=== PATIENT | male | born 1970 | race Caucasian/White ===

== ENCOUNTER 2020-09-23 23:12 | Emergency (ER) | payer SELFPAY ==
[~2020-09-23] VITALS: Ht 190.5 cm; Wt 100.0 kg
[2020-09-23 23:13] VITALS: BP 132/89
[2020-09-23] MEDS ORDERED: ACETAMINOPHEN 500 MG TABLET PO ONE (23:30)
[2020-09-23] MEDS ORDERED: PLEASE ENTER ALLERGIES MC SCH (23:45)
--- NOTE | 2020-09-24 00:11 | NUR ---
PT REFUSED TYLENOL AT THIS TIME "I'M KIND OF HAVING AN EPIPHANY BUT THANKS THOUGH"
[2020-09-24] MEDS ORDERED: CEPHALEXIN 500 MG CAPSULE PO ONE (01:00)
[2020-09-24] MEDS ORDERED: SULFAMETH./TRIMETHOPRIM DS 800MG/160MG TABLET PO ONE (01:00)
[2020-09-24] MEDS ORDERED: CEPHALEXIN 500 MG CAPSULE ONE (01:02)
[2020-09-24] MEDS ORDERED: SULFAMETH./TRIMETHOPRIM DS 800MG/160MG TABLET ONE (01:02)
--- NOTE | 2020-09-24 01:29 | NUR ---
PT ESCORTED OUT WITH SECURITY, THREW DC PAPERS AT SECURITY REFUSED PO ABX AND SWUNG AT RN WHILE ATTEMPTING TO REMOVE BP CUFF
== END 2020-09-24 01:31 | disposition home or self-care (01) ==
LOC: ED 23:42
DX: L03.116 Cellulitis of left lower limb (principal); M79.605 Pain in left leg; M79.89 Other specified soft tissue disorders; F17.210 Nicotine dependence, cigarettes, uncomplicated
CPT/HCPCS: 99284; 99406

== ENCOUNTER 2020-09-26 03:20 | Emergency (ER) | payer SELFPAY ==
[~2020-09-26] VITALS: Ht 190.5 cm; Wt 84.6 kg
[2020-09-26 03:21] VITALS: BP 146/95
== END 2020-09-26 04:21 | disposition home or self-care (01) ==
LOC: ED 04:00
DX: L03.116 Cellulitis of left lower limb (principal); F17.200 Nicotine dependence, unspecified, uncomplicated; Z72.9 Problem related to lifestyle, unspecified
CPT/HCPCS: 99283

== ENCOUNTER 2021-02-24 21:27 | Emergency (ER) | payer SELFPAY ==
[~2021-02-24] VITALS: Ht 190.5 cm; Wt 86.0 kg
--- NOTE | 2021-02-24 22:33 | NUR ---
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
[2021-02-24] MEDS ORDERED: LORazepam 1MG TABLET PO ONE (23:00)
[2021-02-24] MEDS ORDERED: THIAMINE 100MG TABLET PO ONE (23:00)
[2021-02-24] MEDS ORDERED: ONDANSETRON ODT 4 MG PO ONE (23:00)
[2021-02-24 23:09] LABS: BASOPHILS % (AUTO) 1 % (0-1); EOSINOPHILS % (AUTO) 6 % (1-7); LYMPHOCYTES % (AUTO) 30 % (22-44); MEAN CORPUSCULAR HEMOGLOBIN 30.6 pg (27.5-34.5); MEAN CORPUSCULAR HGB CONC 34.2 g/dL (33.2-36.2); MEAN PLATELET VOLUME 8.2 fL (7.4-10.4); MONOCYTES % (AUTO) 8 % (2-9); NEUTROPHILS % (AUTO) 56 % (42-75); PLATELET COUNT 284 x10^3/uL (130-400); RED BLOOD COUNT 4.92 x10^6/uL (4.38-5.82); RED CELL DISTRIBUTION WIDTH 13.2 % (9.4-14.8)
--- NOTE | 2021-02-24 23:09 | NUR ---
PT RESTING ON GURNEY RESP EVEN AND UNLABORED NADN, VSS NO NEEDS AT THIS TIME.
[2021-02-24 23:13] LABS: ALBUMIN 3.8 g/dL (3.4-5.0); ANION GAP 4 mmol/L (5-15); CALCIUM 8.6 mg/dL (8.5-10.1); CHLORIDE 106 mmol/L (98-107); CREATININE 0.93 mg/dL (0.7-1.3)
[2021-02-24] MEDS ORDERED: ONDANSETRON ODT 4 MG ONE (23:34)
[2021-02-24] MEDS ORDERED: LORazepam 1MG TABLET ONE (23:34)
[2021-02-24] MEDS ORDERED: THIAMINE 100MG TABLET ONE (23:34)
[2021-02-24 23:38] VITALS: BP 132/88
--- NOTE | 2021-02-25 00:09 | NUR ---
Patient/Caregiver given discharge instructions and they have confirmed that they understand the instructions. Patient ambulatory with steady gait.
== END 2021-02-25 00:15 | disposition home or self-care (01) ==
LOC: ED 22:00
DX: F10.139 Alcohol abuse with withdrawal, unspecified (principal); R45.4 Irritability and anger; Z72.9 Problem related to lifestyle, unspecified; R00.0 Tachycardia, unspecified; Y90.0 Blood alcohol level of less than 20 mg/100 ml
CPT/HCPCS: 36415; 80048; 80320; 82040; 85025; 93005; 99284; Q0162; G0480